=== PATIENT | female | born 1935 | race Caucasian/White ===

== ENCOUNTER 2016-09-19 12:04 | Observation (INO) | payer MEDICARE, OTHER ==
--- NOTE | 2016-09-19 13:47 | EKG REPORT ---
SEVERITY:- ABNORMAL ECG - SINUS TACHYCARDIA VENTRICULAR PREMATURE COMPLEX PROBABLE LEFT ATRIAL ABNORMALITY PROBABLE LEFT VENTRICULAR HYPERTROPHY CONSIDER ANTERIOR INFARCT : Confirmed by: Jacquelyn Harrison 19-Sep-2016 13:46:58
[2016-09-19] MEDS ORDERED: ACETAMINOPHEN 325 MG TABLET PO ONE (13:54)
--- NOTE | 2016-09-19 13:56 | ER Document Report ---
ED General - General Information source: Patient, Relative TRAVEL OUTSIDE OF THE [place] IN LAST 30 DAYS: No - HPI Patient complains to provider of: Altered Mental Status Onset: Yesterday Onset/Duration: Sudden Recently seen / treated by doctor: Yes - follow-up with surgeon on Thursday, <SAHIL RANDOLPH - Last Filed: 09/19/16 14:09> <LUCILA DE LEÓN - Last Filed: 09/19/16 16:22> - General Chief Complaint: Altered Mental Status Stated Complaint: ALTERED MENTAL STATUS Notes: Patient is an 81-year-old female presenting to the emergency department accompanied by her family is concerned of patient's altered mental status. Patient recently had a surgery, and was followed up with on Thursday, 2016, at the surgeon's office. Patient's family states that her surgical wound was infected. At approximately 3 PM yesterday, she began having an altered mental status. Patient's family states that her leg swelling is much less than it was a few days ago. Patient's family also states that the patient had a fever on , but the patient denies this. Patient last took Tylenol at 9 AM. Patient complains of being unable to sleep due to her water pill making her urinate too often. (SAHIL RANDOLPH) - Related Data Allergies/Adverse Reactions: No Known Allergies Allergy (Verified 08/29/12 13:51) Past Medical History - General Information source: Patient, Relative - Social History Smoking Status: Current Every Day Smoker Family History: Reviewed & Not Pertinent, CAD - Her father had a myocardial infarction. - Past Medical History Cardiac Medical History: Reports: Hx Heart Attack - 20yrs, Hx Hypercholesterolemia, Hx Hypertension - medicated Pulmonary Medical History: Reports: Hx Pneumonia - June, Musculoskeltal Medical History: Reports Hx Arthritis - RA Skin Medical History: Denies Hx Eczema, Denies Hx Psoriasis Past Surgical History: Reports: Hx Cholecystectomy, Hx Hysterectomy, Hx Tonsillectomy, Hx Tubal Ligation, Other - Mesenteric volvulus - Immunizations Hx Diphtheria, Pertussis, Tetanus Vaccination: Yes Hx Pneumococcal Vaccination: 07/15/11 <SAHIL RANDOLPH - Last Filed: 09/19/16 14:09> Review of Systems - Review of Systems -: Yes ROS unobtainable due to patient's medical condition - Patient has altered mental status. <SAHIL RANDOLPH - Last Filed: 09/19/16 14:09> Physical Exam - Vital signs Interpretation: Tachycardic - General General appearance: Alert - HEENT Head: Normocephalic, Atraumatic Eyes: Normal Pupils: PERRL - Respiratory Respiratory status: No respiratory distress Chest status: Nontender Breath sounds: Normal Chest palpation: Normal - Cardiovascular Rhythm: Regular Heart sounds: Normal auscultation Murmur: No - Abdominal Inspection: Wounds - Bandage over surgical wound that family states is infected. - Back Back: Normal, Nontender - Extremities General upper extremity: Normal inspection, Nontender, Normal color, Normal ROM , Normal temperature General lower extremity: Normal inspection, Nontender, Normal color, Normal ROM , Normal temperature - Neurological Neuro grossly intact: Yes Cognition: Normal [place] Coma Scale Eye Opening: Spontaneous [place] Coma Scale Verbal: Oriented [place] Coma Scale Motor: Obeys Commands Princess Coma Scale Total: 15 Speech: Normal - Psychological Associated symptoms: Normal affect, Confused - Skin Skin Temperature: Hot Skin Moisture: Dry Skin Color: Ecchymosis <SAHIL RANDOLPH - Last Filed: 09/19/16 14:09> Course <SAHIL RANDOLPH - Last Filed: 09/19/16 14:09> - Laboratory Result Diagrams: 09/19/16 12:20 09/19/16 12:20 - Diagnostic Test Radiology reviewed: Image reviewed, Reports reviewed - Minimal left retrocardiac airspace disease, small left pleural effusion. These are not new findings based on prior x-rays. - EKG Interpretation by Me EKG shows normal: Sinus rhythm, [place], Intervals, ST-T Waves. abnormal: QRS Complexes - Old anterior [place] Rate: Tachycardia - 115 Rhythm: PVC's Voltage: Consistant with LVH P Waves: LAE - Consults Dr. Dickens Time consulted: 16:10 Consulted provider: will come to ER <LUCILA DE LEÓN - Last Filed: 09/19/16 16:22> - Re-evaluation Re-evalutation: 09/19/16 16:20 I discussed these findings with the patient and her family. She was taking a nap, her heart rate is down to 85 from the previous 115. Her skin feels much cooler. All this is since receiving Tylenol. She initially states she doesn't want to be seen by one of the hospitalists, until she found it would be one the female was that she likes. Soon after agreeing to see the hospitalist, she began yelling that she wanted be admitted and was going home. Her behavior here is suggestive of dementia being a component of her worsening confusion. (LUCILA DE LEÓN) - Vital Signs Vital signs: Temp Pulse Resp BP Pulse Ox 25 H 113/58 L 99 09/19/16 13:01 09/19/16 13:01 09/19/16 13:01 (SAHIL RANDOLPH) (LUCILA DE LEÓN) - Laboratory Laboratory results interpreted by me: 09/19/16 09/19/16 09/19/16 12:20 12:20 15:20 WBC 12.7 H RBC 3.39 L Hgb 10.0 L Hct 30.3 L RDW 18.7 H Plt Count 476 H Seg Neutrophils % 89.6 H Lymphocytes % 6.1 L Absolute Neutrophils 11.4 H Sodium 129.2 L Chloride 94 L Glucose 127 H Creatine Kinase 29 L Total Protein 5.3 L Albumin 2.5 L Urine Ketones TRACE H Urine Blood SMALL H (LUCILA DE LEÓN) Discharge <SAHIL RANDOLPH - Last Filed: 09/19/16 14:09> - Discharge Admitting Provider: Hospitalist Unit Admitted: Telemetry <LUCILA DE LEÓN - Last Filed: 09/19/16 16:22> - Discharge Clinical Impression: Hyponatremia, Confusion, Tachycardia Rheumatoid arthritis Qualifiers: Rheumatoid arthritis location: unspecified site Rheumatoid factor presence: unspecified presence Qualified Code(s): M06.9 - Rheumatoid arthritis, unspecified Dementia Qualifiers: Dementia type: unspecified type Dementia behavioral disturbance: without behavioral disturbance Qualified Code(s): F03.90 - Unspecified dementia without behavioral disturbance Condition: Stable Disposition: ADMITTED INPATIENT Referrals: GENIE TATE DO [Primary Care Provider] - Follow up as needed Scribe Attestation: 09/19/16 16:13 I personally performed the services described in the documentation, reviewed and edited the documentation which was dictated to the scribe in my presence, and it accurately records my words and actions. (LUCILA DE LEÓN) Scribe Documentation - Scribe Written by Scribe:: Sahil Randolph 09/19/2016 13:51 acting as scribe for :: Alejandra <SAHIL RANDOLPH - Last Filed: 09/19/16 14:09>
[2016-09-19 14:50] LABS: ABSOLUTE LYMPHOCYTES (AUTO) 0.8 10^3/uL (0.5-4.7); ABSOLUTE MONOCYTES (AUTO) 0.5 10^3/uL (0.1-1.4); ABSOLUTE NEUT (AUTO) 11.4 10^3/uL (1.7-8.2); BASOPHILS % (AUTO) 0.1 % (0-2); HEMATOCRIT 30.3 % (36.0-47.0); HGB HCT DIFFERENCE -0.3; LYMPHOCYTES % (AUTO) 6.1 % (13-45); MEAN CORPUSCULAR HEMOGLOBIN 29.6 pg (27.0-33.4); MEAN CORPUSCULAR HGB CONC 33.2 g/dL (32.0-36.0); MEAN CORPUSCULAR VOLUME 89 fl (80-97); MONOCYTES % (AUTO) 4.2 % (3-13); RED BLOOD COUNT 3.39 10^6/uL (3.72-5.28); RED CELL DISTRIBUTION WIDTH 18.7 % (11.5-14.0); SEGMENTED NEUTROPHILS % (AUTO) 89.6 % (42-78); WHITE BLOOD COUNT 12.7 10^3/uL (4.0-10.5)
[2016-09-19 14:55] LABS: ALANINE AMINOTRANSFERASE 48 U/L (9-52); ALBUMIN 2.5 g/dL (3.5-5.0); ALKALINE PHOSPHATASE 101 U/L (38-126); ANION GAP 10 (5-19); ASPARTATE AMINO TRANSFERASE 35 U/L (14-36); BILIRUBIN,TOTAL 0.4 mg/dL (0.2-1.3); BLOOD UREA NITROGEN 19 mg/dL (7-20); CALCIUM 8.5 mg/dL (8.4-10.2); CARBON DIOXIDE 25 mmol/L (22-30); CHLORIDE 94 mmol/L (98-107); CREATINE KINASE 29 U/L (30-135); CREATININE RESULT 0.67 mg/dL (0.52-1.25); GLUCOSE 127 mg/dL (75-110); MAGNESIUM 1.6 mg/dL (1.6-2.3); POTASSIUM 4.9 mmol/L (3.6-5.0); SODIUM 129.2 mmol/L (137-145); TOTAL PROTEIN 5.3 g/dL (6.3-8.2)
[2016-09-19 15:05] LABS: CREATINE KINASE MB 1.92 ng/mL (<4.55); TROPONIN I 0.015 ng/mL
[2016-09-19 15:52] LABS: APPEARANCE,URINE SLIGHTLY-CLOUDY; BILIRUBIN,URINE NEGATIVE (NEGATIVE); GLUCOSE, URINE NEGATIVE (NEGATIVE); KETONES,URINE TRACE mg/dL (NEGATIVE); LEUKOCYTE ESTERASE,URINE NEGATIVE (NEGATIVE); NITRITE,URINE NEGATIVE (NEGATIVE); PROTEIN,URINE NEGATIVE (NEGATIVE); URINE SPECIFIC GRAVITY 1.017; UROBILINOGEN,URINE NEGATIVE mg/dL (<2.0)
--- NOTE | 2016-09-19 17:20 | PDOC H&P ---
History of Present Illness Admission Date/PCP: 09/19/16 16:44 GENIE TATE DO Patient complains of: confusion History of Present Illness: LISSET ESCALANTE is a 81 year old female who was brought to the ED because of increase confusion Patient has been weeping , more confused , restless She did not eat well in the past day patient was recently discharged from the hospital after abdominal surgery for SBO She resides in her home and her family rotates to provide 24 hour care . She usually ambulates with a walker Past Medical History Cardiac Medical History: Reports: Myocardial Infarction - 20yrs, Hyperlipidema, Hypertension - medicated Denies: Congestive Heart Failure, DVT, Pulmonary Embolism Pulmonary Medical History: Reports: Pneumonia - June, Denies: Asthma, Chronic Obstructive Pulmonary Disease (COPD) Neurological Medical History: Denies: Seizures Endocrine Medical History: Denies: Diabetes Mellitus Type 1, Diabetes Mellitus Type 2, Hyperthyroidism, Hypothyroidism GI Medical History: Denies: Cirrhosis, Gastroesophageal Reflux Disease, Hepatitis, Hiatal Hernia Musculoskeltal Medical History: Reports: Arthritis - RA Skin Medical History: Denies: Eczema, Psoriasis Psychiatric Medical History: Denies: Depression Hematology: Denies: Anemia, Sickle Cell Disease Past Surgical History Past Surgical History: Reports: Cholecystectomy, Hysterectomy, Tonsillectomy, Tubal Ligation, Other - Mesenteric volvulus Denies: Amputation, Mastectomy, Pacemaker Social History Smoking Status: Current Every Day Smoker Frequency of Alcohol Use: Occasional Hx Recreational Drug Use: No Drugs: None Hx Prescription Drug Abuse: No - Advance Directive Resuscitation Status: Do Not Resuscitate Surrogate healthcare decision maker:: Daughter Pat Family History Family History: CAD - Her father had a myocardial infarction. Parental Family History Reviewed: Yes - CAD Children Family History Reviewed: Yes Sibling(s) Family History Reviewed.: Yes Medication/Allergy Home Medications: Aspirin [Ecotrin 81 mg EC Tablet] 81 mg PO QHS 08/29/12 Calcium Citrate/Vitamin D3 [Calcitrate + Vit D Caplet] 1 each PO BID 08/29/12 Folic Acid 5 mg PO QAM 08/29/12 Methotrexate Sodium [Methotrexate] 15 mg PO TH 08/29/12 Multivitamin [Tab-A-Markel (Multiple Vitamin) Tablet] 1 tab PO DAILY 08/29/12 Omeprazole [Prilosec 20 mg Capsule] 20 mg PO DAILY 12/16/12 Infliximab [Remicade Inj 100 mg Vial] 100 mg IV [id number] 06/20/16 Apixaban [Eliquis 2.5 mg Tablet] 2.5 mg PO BID #60 tablet 08/15/16 Diltiazem HCl [Cardizem Cd 120 mg Capsule] 120 mg PO Q12 #60 cap.sr.24h Lisinopril [Prinivil 5 mg Tablet] 5 mg PO Q12 #60 tablet 08/15/16 Allergies/Adverse Reactions: No Known Allergies Allergy (Verified 08/29/12 13:51) Review of Systems ROS unobtainable: Due to mental status - patient does not give appropriate answers Physical Exam Vital Signs: Temp Pulse Resp BP Pulse Ox 100.4 F 12 107/59 L 100 09/19/16 13:01 09/19/16 16:01 09/19/16 16:01 09/19/16 16:01 General appearance: PRESENT: no acute distress, thin Head exam: PRESENT: atraumatic, normocephalic Eye exam: PRESENT: conjunctiva pink, EOMI, PERRLA. ABSENT: scleral icterus Respiratory exam: PRESENT: clear to auscultation jose manuel. ABSENT: rales, rhonchi, wheezes Cardiovascular exam: PRESENT: RRR. ABSENT: diastolic murmur, rubs, systolic murmur GI/Abdominal exam: PRESENT: normal bowel sounds, soft. ABSENT: distended, guarding, mass, organolmegaly, rebound, tenderness Rectal exam: PRESENT: deferred Neurological exam: PRESENT: awake, other - confused Skin exam: PRESENT: dry, intact, warm. ABSENT: cyanosis, rash Results Laboratory Results: Labs- All tests 24 hr 09/19/16 09/19/16 09/19/16 12:20 12:20 12:20 WBC 12.7 H RBC 3.39 L Hgb 10.0 L Hct 30.3 L MCV 89 MCH 29.6 MCHC 33.2 RDW 18.7 H Plt Count 476 H Seg Neutrophils % 89.6 H Lymphocytes % 6.1 L Monocytes % 4.2 Eosinophils % 0.0 Basophils % 0.1 Absolute Neutrophils 11.4 H Absolute Lymphocytes 0.8 Absolute Monocytes 0.5 Absolute Eosinophils 0.0 Absolute Basophils 0.0 Sodium 129.2 L Potassium 4.9 Chloride 94 L Carbon Dioxide 25 Anion Gap 10 BUN 19 Creatinine 0.67 Est GFR ( Amer) > 60 Est GFR (Non-Af Amer) > 60 Glucose 127 H Calcium 8.5 Magnesium 1.6 Total Bilirubin 0.4 Direct Bilirubin 0.0 AST 35 ALT 48 Alkaline Phosphatase 101 Creatine Kinase 29 L CK-MB (CK-2) 1.92 Troponin I 0.015 Total Protein 5.3 L Albumin 2.5 L Urine Color Urine Appearance Urine pH Ur Specific [place] Urine Protein Urine Glucose (UA) Urine Ketones Urine Blood Urine Nitrite Urine Bilirubin Urine Urobilinogen Ur Leukocyte Esterase Urine WBC (Auto) Urine RBC (Auto) Urine Ascorbic Acid 09/19/16 15:20 WBC RBC Hgb Hct MCV MCH MCHC RDW Plt Count Seg Neutrophils % Lymphocytes % Monocytes % Eosinophils % Basophils % Absolute Neutrophils Absolute Lymphocytes Absolute Monocytes Absolute Eosinophils Absolute Basophils Sodium Potassium Chloride Carbon Dioxide Anion Gap BUN Creatinine Est GFR ( Amer) Est GFR (Non-Af Amer) Glucose Calcium Magnesium Total Bilirubin Direct Bilirubin AST ALT Alkaline Phosphatase Creatine Kinase CK-MB (CK-2) Troponin I Total Protein Albumin Urine Color YELLOW Urine Appearance SLIGHTLY-CLOUDY Urine pH 5.0 Ur Specific [place] 1.017 Urine Protein NEGATIVE Urine Glucose (UA) NEGATIVE Urine Ketones TRACE H Urine Blood SMALL H Urine Nitrite NEGATIVE Urine Bilirubin NEGATIVE Urine Urobilinogen NEGATIVE Ur Leukocyte Esterase NEGATIVE Urine WBC (Auto) 2 Urine RBC (Auto) 14 Urine Ascorbic Acid NEGATIVE Impressions: Chest X-Ray 09/19/16 13:51 IMPRESSION: Trace bilateral pleural effusions, stable compared to 08/26/2015 Minimal Left retrocardiac airspace disease, atelectasis versus pneumonia Assessment & Plan - Diagnosis (1) Delirium Is this a current diagnosis for this admission?: YesPlan: Likely secondary to metabolic encephalopathy Metabolic encephalopathy secondary to urinary tract infection most likely Noted that patient does have a great fever and white blood count of 12.5 She is also incontinent of urine We will order blood cultures urine culture And initiate ceftriaxone IV We will avoid benzodiazepines order Risperdal 0.25 mg by mouth every 12 hours Sitter if needed (2) UTI (urinary tract infection) Qualifiers: Encounter type: subsequent encounter Is this a current diagnosis for this admission?: YesPlan: Ceftriaxone IV (3) Hyponatremia Is this a current diagnosis for this admission?: YesPlan: Acute on chronic 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
[2016-09-19] MEDS ORDERED: CEFTRIAXONE 1 GM/D5W RTU 1 GM/50 ML RTUPB IV SCH (18:00)
[2016-09-19] MEDS ORDERED: RISPERIDONE 0.25 MG TABLET PO SCH (18:00)
[2016-09-19] MEDS: FAMOTIDINE INJ/PF 20 MG/2 ML SDV IV SCH (21:54)
[2016-09-20] MEDS ORDERED: LORAZEPAM INJ 2 MG/1 ML VIAL IV ONE (03:00)
[2016-09-20] MEDS ORDERED: MORPHINE SULFATE 10 MG/ML INJ IV ONE (03:00)
[2016-09-20 06:38] LABS: ABSOLUTE LYMPHOCYTES (AUTO) 0.8 10^3/uL (0.5-4.7); ABSOLUTE MONOCYTES (AUTO) 0.7 10^3/uL (0.1-1.4); ABSOLUTE NEUT (AUTO) 7.2 10^3/uL (1.7-8.2); BASOPHILS % (AUTO) 0.5 % (0-2); EOSINOPHILS % (AUTO) 0.2 % (0-6); HEMATOCRIT 30.7 % (36.0-47.0); HEMOGLOBIN 10.1 g/dL (12.0-15.5); HGB HCT DIFFERENCE -0.4; LYMPHOCYTES % (AUTO) 9.1 % (13-45); MEAN CORPUSCULAR HEMOGLOBIN 29.6 pg (27.0-33.4); MEAN CORPUSCULAR HGB CONC 32.8 g/dL (32.0-36.0); MEAN CORPUSCULAR VOLUME 90 fl (80-97); MONOCYTES % (AUTO) 7.5 % (3-13); RED CELL DISTRIBUTION WIDTH 18.3 % (11.5-14.0); SEGMENTED NEUTROPHILS % (AUTO) 82.7 % (42-78); WHITE BLOOD COUNT 8.7 10^3/uL (4.0-10.5)
[2016-09-20 06:55] LABS: ALANINE AMINOTRANSFERASE 42 U/L (9-52); ALBUMIN 2.6 g/dL (3.5-5.0); ALKALINE PHOSPHATASE 84 U/L (38-126); ANION GAP 5 (5-19); ASPARTATE AMINO TRANSFERASE 33 U/L (14-36); BILIRUBIN,TOTAL 0.4 mg/dL (0.2-1.3); BLOOD UREA NITROGEN 11 mg/dL (7-20); CALCIUM 8.3 mg/dL (8.4-10.2); CARBON DIOXIDE 28 mmol/L (22-30); CHLORIDE 99 mmol/L (98-107); CREATININE RESULT 0.57 mg/dL (0.52-1.25); GLUCOSE 79 mg/dL (75-110); MAGNESIUM 1.9 mg/dL (1.6-2.3); POTASSIUM 4.4 mmol/L (3.6-5.0); SODIUM 131.8 mmol/L (137-145); TOTAL PROTEIN 5.3 g/dL (6.3-8.2)
[2016-09-20] MEDS ORDERED: ENOXAPARIN SODIUM INJ 40 MG/0.4 ML DISP.SYRIN SUBCUT SCH (08:00)
[2016-09-20] MEDS ORDERED: HALOPERIDOL LACTATE INJ 5 MG/1 ML VIAL IV PRN ×3 (08:58→22:00)
[2016-09-20] MEDS: FAMOTIDINE INJ/PF 20 MG/2 ML SDV IV SCH ×2 (09:30→23:39)
--- NOTE | 2016-09-20 15:08 | PDOC PROGRESS REPORT ---
Subjective Progress Note for:: 09/20/16 Subjective:: Patient feels better Last night she was agitated belligerent and had to be medicated and restrained Now she is more cooperative and awake A CT of the head could be performed and it showed sinusitis , no acute abnormalities Physical Exam Vital Signs: Temp Pulse Resp BP Pulse Ox 98.7 F 104 H 14 149/73 H 99 09/20/16 12:07 09/20/16 12:07 09/20/16 12:07 09/20/16 12:07 09/20/16 12:07 Intake & Output 09/19/16 09/20/16 09/21/16 00:59 00:59 00:59 Intake Total 275 Balance 275 Weight 47.8 kg 47.8 kg General appearance: PRESENT: no acute distress, thin Head exam: PRESENT: atraumatic, normocephalic Eye exam: PRESENT: conjunctiva pink, EOMI, PERRLA. ABSENT: scleral icterus Neck exam: ABSENT: carotid bruit, JVD, lymphadenopathy, thyromegaly Respiratory exam: PRESENT: clear to auscultation jose manuel. ABSENT: rales, rhonchi, wheezes Cardiovascular exam: PRESENT: RRR. ABSENT: diastolic murmur, rubs, systolic murmur Pulses: PRESENT: normal dorsalis pedis pul GI/Abdominal exam: PRESENT: normal bowel sounds, soft. ABSENT: distended, guarding, mass, organolmegaly, rebound, tenderness Extremities exam: PRESENT: full ROM. ABSENT: calf tenderness, clubbing, pedal edema Neurological exam: PRESENT: CN II-XII grossly intact Results Laboratory Results: 09/20/16 06:28 09/20/16 06:28 09/20/16 09/20/16 09/20/16 06:28 06:28 06:28 WBC 8.7 RBC 3.40 L Hgb 10.1 L Hct 30.7 L MCV 90 MCH 29.6 MCHC 32.8 RDW 18.3 H Plt Count 451 H Seg Neutrophils % 82.7 H Lymphocytes % 9.1 L Monocytes % 7.5 Eosinophils % 0.2 Basophils % 0.5 Absolute Neutrophils 7.2 Absolute Lymphocytes 0.8 Absolute Monocytes 0.7 Absolute Eosinophils 0.0 Absolute Basophils 0.0 Sodium 131.8 L Potassium 4.4 Chloride 99 Carbon Dioxide 28 Anion Gap 5 BUN 11 Creatinine 0.57 Est GFR ( Amer) > 60 Est GFR (Non-Af Amer) > 60 Glucose 79 Calcium 8.3 L Magnesium 1.9 Total Bilirubin 0.4 AST 33 ALT 42 Alkaline Phosphatase 84 Total Protein 5.3 L Albumin 2.6 L TSH 1.65 09/20/16 00:31 Troponin I 0.016 Impressions: Chest X-Ray 09/19/16 13:51 IMPRESSION: Trace bilateral pleural effusions, stable compared to 08/26/2015 Minimal Left retrocardiac airspace disease, atelectasis versus pneumonia Head CT 09/20/16 08:57 IMPRESSION: No acute abnormality in the brain. Assessment & Plan - Diagnosis (1) Delirium Is this a current diagnosis for this admission?: YesPlan: improved treat with small doses risperdal TSH was normal will add vitamin B12 (2) UTI (urinary tract infection) Qualifiers: Encounter type: subsequent encounter Is this a current diagnosis for this admission?: YesPlan: urine culture was negative d/c ceftriaxone (3) Hyponatremia Is this a current diagnosis for this admission?: YesPlan: likely secondary to SIADH continue fluid restriction (4) Sinusitis Qualifiers: Sinusitis location: ethmoidal Chronicity: unspecified Qualified Code(s): J32.2 - Chronic ethmoidal sinusitis Is this a current diagnosis for this admission?: YesPlan: with fluid in ethmoid sinus on CT wll start Levaquin 500 mg daily (5) Pneumonia Qualifiers: Pneumonia type: due to unspecified organism Laterality: unspecified laterality Lung location: unspecified part of lung Qualified Code(s) : J18.9 - Pneumonia, unspecified organism Is this a current diagnosis for this admission?: YesPlan: retrocardiac infiltrate initiated levaquin po and nebs - Time Time Spent with patient: 25-34 minutes
[2016-09-20] MEDS ORDERED: RISPERIDONE 1 MG TABLET PO SCH (18:00)
[2016-09-20] MEDS ORDERED: LEVOFLOXACIN 500 MG TABLET PO SCH (18:00)
[2016-09-20] MEDS: IPRATROPIUM/ALBUTEROL 0.5-2.5 MG/3 ML AMPUL NEB SCH (20:00)
[2016-09-20] MEDS ORDERED: GUAIFENESIN 600 MG TABLET.SA PO SCH (22:00)
[2016-09-21] MEDS: IPRATROPIUM/ALBUTEROL 0.5-2.5 MG/3 ML AMPUL NEB SCH (09:18)
[2016-09-21 10:44] VITALS: BP 102/65
--- NOTE | 2016-10-02 17:26 | PDOC DISCHARGE SUMMARY ---
General - Admit/Disc Date/PCP Admission Date/Primary Care Provider: 09/19/16 16:49 GENIE TATE, Discharge Date: 09/21/16 - Discharge Diagnosis (1) Delirium Is this a current diagnosis for this admission?: YesSummary: Secondary to metabolic encephalopathy resolved Metabolic encephalopathy secondary to urinary tract infection ;pneumonia ; sinusitis and hyponatremia Head CT was performed and was unremarkable except for chronic sinusitis (2) UTI (urinary tract infection) Is this a current diagnosis for this admission?: YesSummary: The urine looked infected on admission ; the urine culture was unremarkable Patient was treated with IV antibiotics she was switched to Levaquin by mouth at discharge; (3) Hyponatremia Is this a current diagnosis for this admission?: YesSummary: 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 ; patient responded to fluid restriction At discharge the sodium is 131 (4) Sinusitis Is this a current diagnosis for this admission?: YesSummary: Visualized on CAT scan Patient was discharged on Levaquin (5) Pneumonia Is this a current diagnosis for this admission?: YesSummary: Chest x-ray showed a left retrocardiac space infiltrate Patient did not have significant hypoxemia ;she was treated with Levaquin and improved (6) Chronic atrial fibrillation Is this a current diagnosis for this admission?: YesSummary: Rate controlled chronically anticoagulated Patient is in sinus rhythm when evaluated - Additional Information Resuscitation Status: Do Not Resuscitate Home Medications: Apixaban [Eliquis 2.5 mg Tablet] 2.5 mg PO Q12 09/19/16 Aspirin [Ecotrin 81 mg EC Tablet] 81 mg PO QHS 09/19/16 Calcium Citrate/Vitamin D3 [Calcitrate + Vit D Caplet] 1 tab PO BID 09/19/16 Diltiazem HCl [Cardizem Cd 120 mg Capsule] 120 mg PO Q12 09/19/16 Fexofenadine HCl [Analia] 180 mg PO DAILYP PRN 09/19/16 Folic Acid 5 mg PO QAM 09/19/16 Furosemide [Lasix 20 mg Tablet] 20 mg PO DAILY 09/19/16 Infliximab [Remicade Inj 100 mg Vial] 100 mg IV [id number] 09/19/16 Lisinopril [Prinivil 5 mg Tablet] 5 mg PO Q12 09/19/16 Methotrexate Sodium [Methotrexate] 15 mg PO TH 09/19/16 Multivitamin [Tab-A-Markel (Multiple Vitamin) Tablet] 1 tab PO DAILY 09/19/16 Omeprazole 20 mg PO DAILY 09/19/16 Potassium Chloride [Klor-Con M10] 20 meq PO DAILY 09/19/16 Prednisone [Deltasone 5 mg Tablet] 5 mg PO DAILY 09/19/16 Levofloxacin [Levaquin 500 mg Tablet] 500 mg PO QPM #10 tablet 09/21/16 Risperidone [Risperdal 0.25 Mg Tablet] 0.25 mg PO BID #60 tablet 09/21/16 Hospital Course Hospital Course: See above Physical Exam Vital Signs: Temp Pulse Resp BP Pulse Ox 97.5 F 126 H 24 H 102/65 98 09/21/16 09:31 09/21/16 09:31 09/21/16 09:31 09/21/16 09:31 09/21/16 09:31 General appearance: PRESENT: no acute distress, cooperative, thin Eye exam: PRESENT: conjunctiva pink, EOMI, PERRLA. ABSENT: scleral icterus Mouth exam: PRESENT: moist, tongue midline Neck exam: ABSENT: carotid bruit, JVD, lymphadenopathy, thyromegaly Respiratory exam: PRESENT: clear to auscultation jose manuel. ABSENT: rales, rhonchi, wheezes Cardiovascular exam: PRESENT: RRR. ABSENT: diastolic murmur, rubs, systolic murmur Pulses: PRESENT: normal dorsalis pedis pul GI/Abdominal exam: PRESENT: normal bowel sounds, soft. ABSENT: distended, guarding, mass, organolmegaly, rebound, tenderness Extremities exam: PRESENT: full ROM. ABSENT: calf tenderness, clubbing, pedal edema Neurological exam: PRESENT: alert, awake, CN II-XII grossly intact Results Laboratory Results: 09/20/16 06:28 09/20/16 06:28 09/20/16 00:31 Troponin I 0.016 Impressions: Chest X-Ray 09/19/16 13:51 IMPRESSION: Trace bilateral pleural effusions, stable compared to 08/26/2015 Minimal Left retrocardiac airspace disease, atelectasis versus pneumonia Head CT 09/20/16 08:57 IMPRESSION: No acute abnormality in the brain. Plan Discharge Plan: Patient was discharged home to follow up with Dr. Mejias her primary care physician
== END 2016-09-21 11:48 | disposition home health service (06) ==
LOC: ER 12:04 → EH 16:44 → UNDOADMIN 16:44 → EH 16:49 → INTOOBSV 16:49 → 5 17:53
PROVIDERS: ADMIT Emergency Medicine; ATTEND Emergency Medicine
DX: R41.0 Disorientation, unspecified (principal); N39.0 Urinary tract infection, site not specified; G93.41 Metabolic encephalopathy; E87.1 Hypo-osmolality and hyponatremia; J32.9 Chronic sinusitis, unspecified; J18.9 Pneumonia, unspecified organism; I48.2 Chronic atrial fibrillation; Z79.01 Long term (current) use of anticoagulants; I25.2 Old myocardial infarction; E78.5 Hyperlipidemia, unspecified; I10 Essential (primary) hypertension; M06.9 Rheumatoid arthritis, unspecified; F17.210 Nicotine dependence, cigarettes, uncomplicated; Z82.49 Family history of ischemic heart disease and other diseases of the circulatory system
CPT/HCPCS: 93005; 99285; 51701; 36415 ×2; 87040; 87086; 82553; 82962; 82607; 82550; 83735 ×2; 84443; 85025 ×2; 80053 ×2; 81001; 84484 ×2; 71010; 70450; 93010; 94640 ×2; 97162; G0378 ×4; A9270 ×7; J2270; J2060; S0028; G8978; G8979; J3490; J7620